=== PATIENT | male | born 1965 | race Caucasian/White ===

== ENCOUNTER 2016-10-24 00:25 | Emergency (ER) | payer OTHER ==
[~2016-10-24] VITALS: Ht 198.1 cm; Wt 228.4 kg
[~2016-10-24 00:25] MED LIST: ADVIL; ADVIL,NUPRIN,M200 MG PO; COLCRYS0.6 MG PO; DELTASONE1 MG PO; NAPROSYN500 MG PO; PRAVASTATIN SOD40 MG PO; SEASONAL ALLERGY MED
[2016-10-24 02:09] LABS: HEMATOCRIT 40.4 % (38.0-50.0); MCH 29.5 PG (29.0-34.0); MCHC 33.2 G/DL (30.0-36.0); MCV 88.8 FL (86-99); MEAN PLAT.VOLUME 11.1 uM^3 (9.0-12.4); PLATELET COUNT 139 K/uL (156-360); RBC DIS.WIDTH-CV 12.9 % (11.8-14.6); RBC DIS.WIDTH-SD 42.1 % (39-53); RED BLOOD COUNT 4.55 M/uL (4.00-5.50); WHITE BLOOD COUNT 8.1 K/uL (4.1-10.2)
[2016-10-24 02:18] LABS: CHLORIDE 106 mEq/L (99-109); SODIUM 139 mEq/L (136-147)
[2016-10-24 02:19] LABS: GLUCOSE 119 mg/dL (70-99)
[2016-10-24 02:21] LABS: ANION GAP 9 MEQ/L (2-14)
[2016-10-24 02:23] LABS: GFR ESTIMATE (CALCULATED) > 59 mL/min/
[2016-10-24 02:24] LABS: UREA NITROGEN (BUN) 16 mg/dL (9-23)
[2016-10-24 02:30] LABS: TROP-I INTERPRETATION NEGATIVE; TROPONIN-I < 0.01 ng/mL (0.0-0.30)
[2016-10-24] MEDS ORDERED: LISINOPRIL5 MG PO (02:35)
[2016-10-24 02:41] VITALS: BP 139/70
== END 2016-10-24 02:42 | disposition home or self-care (01) ==
LOC: EXP 00:25 → EME 00:25 → EXP 02:42
PROVIDERS: Emergency Medicine
DX: I10 Essential (primary) hypertension (principal); R51 Headache; E11.9 Type 2 diabetes mellitus without complications; M10.9 Gout, unspecified
CPT/HCPCS: 71020; 80048; 84484; 85027; 93005; 99281; 99284

== ENCOUNTER → 2017-01-26 | Outpatient (CLI) | payer OTHER ==
[~2017-01-26] VITALS: Ht 198.1 cm; Wt 226.8 kg
[~2017-01-26] MED LIST changes: +GLUCOPHAGE500 MG PO; +LISINOPRIL5 MG PO; +ZESTRIL5 MG PO; +ZYLOPRIM100 MG PO
[2017-01-26 13:38] LABS: POINT-OF-CARE METER ID UU14107333
== END | disposition home or self-care (01) ==
LOC: AMB 01-12 11:30 → OPR 01-12 13:00 → AMB 12:58
PROVIDERS: Internal Medicine
PROC: 0DJD8ZZ Inspection of Lower Intestinal Tract, Via Natural or Artificial Opening Endoscopic (ICD-10-PCS; principal; 2017-01-26)
DX: Z12.11 Encounter for screening for malignant neoplasm of colon (principal); E11.9 Type 2 diabetes mellitus without complications; Z79.84 Long term (current) use of oral hypoglycemic drugs; G47.30 Sleep apnea, unspecified; E66.01 Morbid (severe) obesity due to excess calories; Z68.43 Body mass index [BMI] 50.0-59.9, adult; K59.00 Constipation, unspecified; L29.0 Pruritus ani
CPT/HCPCS: 82948

== ENCOUNTER 2017-06-11 17:08 | Emergency (ER) | payer OTHER ==
[~2017-06-11] VITALS: Ht 198.1 cm; Wt 227.4 kg
[2017-06-11 18:24] LABS: HEMATOCRIT 38.8 % (38.0-50.0); HEMOGLOBIN 12.8 G/DL (12.5-16.6); MCH 29.7 PG (29.0-34.0); PLATELET COUNT 92 K/uL (156-360); RBC DIS.WIDTH-CV 13.2 % (11.8-14.6); RBC DIS.WIDTH-SD 43.7 % (39-53); RED BLOOD COUNT 4.31 M/uL (4.00-5.50); WHITE BLOOD COUNT 5.6 K/uL (4.1-10.2)
[2017-06-11 18:35] LABS: INTER. NORMALIZED RATIO 1.2
[2017-06-11 18:36] LABS: CHLORIDE 109 mEq/L (99-109); POTASSIUM 4.1 mEq/L (3.7-5.4); SODIUM 139 mEq/L (136-147)
[2017-06-11 18:38] LABS: GLUCOSE 112 mg/dL (70-99); PTT 30.2 SEC (25-37); TOTAL PROTEIN 7.1 g/dL (6.4-8.3)
[2017-06-11 18:41] LABS: ALKALINE PHOSPHATASE 109 IU/L (3-129)
[2017-06-11 18:42] LABS: GFR ESTIMATE (CALCULATED) > 59 mL/min/ (58.99-99999)
[2017-06-11 18:43] LABS: AST (GOT) 86 IU/L (2-34); UREA NITROGEN (BUN) 14 mg/dL (9-23)
[2017-06-11 18:44] LABS: ALT (GPT) 133 IU/L (3-49)
[2017-06-11 18:45] LABS: LIPASE 25 U/L (1.0-51.0); TROP-I INTERPRETATION NEGATIVE; TROPONIN-I < 0.01 ng/mL (0.0-0.30)
[2017-06-11 18:55] LABS: MAGNESIUM 1.8 mg/dL (1.3-2.7)
[2017-06-11 18:58] LABS: TOTAL BILIRUBIN 0.4 mg/dL (0.0-1.0)
[2017-06-11 21:47] VITALS: BP 142/84
== END 2017-06-11 21:49 | disposition home or self-care (01) ==
LOC: EME 17:08
PROVIDERS: Emergency Medicine
DX: R00.2 Palpitations (principal); I49.1 Atrial premature depolarization; B35.3 Tinea pedis; M19.90 Unspecified osteoarthritis, unspecified site; G47.30 Sleep apnea, unspecified; M10.9 Gout, unspecified; Z87.442 Personal history of urinary calculi; Z86.14 Personal history of Methicillin resistant Staphylococcus aureus infection
CPT/HCPCS: 71045; 80053; 83690; 83735; 84484; 85027; 85610; 85730; 86850; 86900; 86901; 93005; 99281; 99285

== ENCOUNTER → 2017-07-17 | Outpatient (CLI) | payer OTHER | END | disposition home or self-care (01) | LOC: EKG 07-10 13:00 | DX: R93.9 Diagnostic imaging inconclusive due to excess body fat of patient (principal) | CPT/HCPCS: 93306 ==

== ENCOUNTER → 2017-08-08 | Outpatient (CLI) | payer OTHER | END | disposition home or self-care (01) | LOC: NUC 07:30 | DX: I44.7 Left bundle-branch block, unspecified (principal); R00.2 Palpitations; R07.9 Chest pain, unspecified; I10 Essential (primary) hypertension; E66.01 Morbid (severe) obesity due to excess calories; E11.9 Type 2 diabetes mellitus without complications | CPT/HCPCS: 78454; 78999; 93017; A9500; J2785 ==

== ENCOUNTER 2017-10-11 18:38 | Emergency (ER) | payer OTHER ==
[~2017-10-11] VITALS: Ht 198.1 cm; Wt 221.1 kg
[2017-10-11 19:41] LABS: HEMATOCRIT 38.3 % (38.0-50.0); HEMOGLOBIN 12.9 G/DL (12.5-16.6); MCH 30.6 PG (29.0-34.0); MCHC 33.7 G/DL (30.0-36.0); MCV 90.8 FL (86-99); PLATELET COUNT 72 K/uL (156-360); RBC DIS.WIDTH-CV 13.5 % (11.8-14.6); RBC DIS.WIDTH-SD 45.1 % (39-53); RED BLOOD COUNT 4.22 M/uL (4.00-5.50)
[2017-10-11 19:55] LABS: ALBUMIN 4.1 g/dL (3.2-4.8); CHLORIDE 105 mEq/L (99-109); POTASSIUM 4.4 mEq/L (3.7-5.4); SODIUM 140 mEq/L (136-147)
[2017-10-11 19:57] LABS: GLUCOSE 95 mg/dL (70-99)
[2017-10-11 19:58] LABS: TOTAL PROTEIN 7.4 g/dL (6.4-8.3)
[2017-10-11 19:59] LABS: TOTAL BILIRUBIN 1.2 mg/dL (0.0-1.0)
[2017-10-11 20:01] LABS: ALKALINE PHOSPHATASE 119 IU/L (3-129); CREATININE 0.8 mg/dL (0.6-1.3); GFR ESTIMATE (CALCULATED) > 59 mL/min/ (58.99-99999)
[2017-10-11 20:02] LABS: UREA NITROGEN (BUN) 13 mg/dL (9-23)
[2017-10-11 20:03] LABS: AST (GOT) 131 IU/L (2-34)
[2017-10-11 20:04] LABS: ALT (GPT) 122 IU/L (3-49)
[2017-10-11 20:05] LABS: LIPASE 20 U/L (1.0-51.0)
[2017-10-11 20:07] LABS: TROP-I INTERPRETATION NEGATIVE; TROPONIN-I < 0.01 ng/mL (0.0-0.30)
[2017-10-11 20:11] LABS: APPEARANCE CLEAR ((CLEAR)); BILIRUBIN NEGATIVE; BLOOD NEGATIVE; COLOR YELLOW ((YELLOW)); GLUCOSE (STRIP) NEGATIVE; KETONES NEGATIVE; LEUKOCYTES SMALL; NITRITE NEGATIVE; PROTEIN (STRIP) NEGATIVE; SPECIFIC GRAVITY 1.015 (1.000-1.030); UROBILINOGEN 0.2 MG/DL (0.2-1.0)
[2017-10-11 20:14] LABS: BACTERIA RARE /HPF; EPITHELIAL CELLS RARE /HPF; MUCUS TRACE /LPF; RED BLOOD CELLS 0-5 /HPF (0-5); UCUL ADDED? NO; WHITE BLOOD CELLS 0-5 /HPF (0-5)
[2017-10-11 20:27] LABS: D-DIMER ELISA < 150.00 ng/mLDDU (<230)
[2017-10-11] MEDS ORDERED: AUGMENTIN875 MG PO (23:09)
[2017-10-11] MEDS ORDERED: TRAMADOL HCL50 MG PO (23:10)
[2017-10-11 23:15] VITALS: BP 118/65
== END 2017-10-11 23:16 | disposition home or self-care (01) ==
LOC: EME 18:38
PROVIDERS: Physician Assistant
DX: K82.8 Other specified diseases of gallbladder (principal); K76.0 Fatty (change of) liver, not elsewhere classified; R16.0 Hepatomegaly, not elsewhere classified; G47.30 Sleep apnea, unspecified; Z87.442 Personal history of urinary calculi; Z86.14 Personal history of Methicillin resistant Staphylococcus aureus infection
CPT/HCPCS: 71046; 76705; 80053; 81003; 83690; 84484; 85027; 85379; 93005; 99281; 99284